=== PATIENT | female | born 1950 | race Caucasian/White ===

== ENCOUNTER 2016-09-25 10:02 | Emergency (ER) | payer MEDICARE ==
[~2016-09-25] VITALS: Ht 154.9 cm; Wt 79.5 kg
[~2016-09-25 10:02] MED LIST: CALC-137 PO; CENTTAB9 PO; ESTR42.5V PV; EXTR500C PO; VITA20002 PO
[2016-09-25 10:04] VITALS: BP 165/74; PULSE 70; RESP 20; TEMP 98.5; O2SAT 96
--- NOTE | 2016-09-25 10:46 | RADRPT ---
EXAM DATE/TIME: 09/25/2016 10:28 [facility] COMPARISON: No previous studies available for comparison. INDICATIONS : Pain from fall. MEDICAL HISTORY : None. SURGICAL HISTORY : Lymph node removal. ENCOUNTER: Initial ACUITY: 2 days PAIN SCORE: 5/10 LOCATION: Right shoulder. FINDINGS: 4 views of the right shoulder demonstrate no fracture or dislocation. Mineralization is normal. There are clips overlying the right axilla. No soft tissue abnormality is seen. Right chest demonstrates n o acute finding. CONCLUSION: No acute right shoulder abnormality is identified. Sarath Fletcher MD on September 25, 2016 at 10:42 Board Certified Radiologist. This report was verified electronically.
--- NOTE | 2016-09-25 10:47 | RADRPT ---
EXAM DATE/TIME: 09/25/2016 10:31 [facility] COMPARISON: No previous studies available for comparison. INDICATIONS : Pain from fall. MEDICAL HISTORY : None. SURGICAL HISTORY : Lymph node removal. ENCOUNTER: Initial ACUITY: 2 days PAIN SCORE: 5/10 LOCATION: Right humerus. FINDINGS: 2 views right humerus demonstrate no fracture or dislocation. Mineralization is within normal limits. No soft tissue abnormality or radiopaque foreign body is identified. Clips overlie the right axilla. CONCLUSION: No acute finding is identified. Sarath Fletcher MD on September 25, 2016 at 10:44 Board Certified Radiologist. This report was verified electronically.
--- NOTE | 2016-09-25 10:48 | PD ---
HPI Chief Complaint: Musculoskeletal Complaint Time Seen by Provider: 10:32 Travel History International Travel<30 days: No Contact w/Intl Traveler<30days: No Traveled to known affect area: No History of Present Illness HPI 66-year-old Spanish female presents the emergency department after slipping and falling yesterday. Patient states her right foot slipped and she fell to the right side landing on her right hip and shoulder. Patient states pain worse in the right upper arm and shoulder. Patient has caused decreased range of motion laterally in the right shoulder. She denies numbness, tingling , or weakness. Pain is localized in the right lateral shoulder. She states her hip is mildly sore but she is able to ambulate without difficulty. She denies neck pain or headache. She did not hit her head or suffer loss of consciousness. Pain is about a 6 out of 10 in the right shoulder, and worse with movement. She has no known drug allergies. PFSH Past Medical History Cancer: Yes (HX RIGHT BREAST CA) Cardiovascular Problems: No Diabetes: No Endocrine: No Genitourinary: No Hepatitis: No Hiatal Hernia: No Immune Disorder: No Musculoskeletal: No Neurologic: No Psychiatric: No Reproductive: No Respiratory: No Thyroid Disease: No Past Surgical History Abdominal Surgery: No Body Medical Devices: PERM DENTAL BRIDGE Cardiac Surgery: No Ear Surgery: No Endocrine Surgery: No Eye Surgery: No Genitourinary Surgery: No Gynecologic Surgery: No Oral Surgery: No Thoracic Surgery: Yes (RIGHT MASTECTOMY, LEFT BX) Social History Alcohol Use: Yes Tobacco Use: No Substance Use: No Allergies-Medications (Allergen,Severity, Reaction): Coded Allergies: No Known Allergies (Unverified , 10/15/15) Reported Meds & Prescriptions Reported Meds & Active Scripts Active Reported Centrum (Multivitamins) Tab 1 Tab PO DAILY Calcium 600 (Calcium Carbonate) Tab 1 Tab PO DAILY 30 Days Vitamin D-3 (Cholecalciferol) 2 000 Tab 2,000 Unit PO DAILY Extra Strength Acetaminop (Acetaminophen) 500 Mg Cap 500 Mg PO Q12HR PRN Estrace (Estradiol) 0.1 Mg/Gm Cre 1 Applic PV Review of Systems Except as stated in HPI: all other systems reviewed are Neg General / Constitutional: No: Fever Eyes: No: Visual changes HENT: No: Headaches Cardiovascular: No: Chest Pain or Discomfort Respiratory: No: Shortness of Breath Gastrointestinal: No: Abdominal Pain Genitourinary: No: Dysuria Musculoskeletal: Positive: Myalgias, Arthralgias, Limited ROM, Pain (see history present illness.) Skin: No Rash Neurologic: No: Weakness Psychiatric: No: Depression Endocrine: No: Polydipsia Hematologic/Lymphatic: No: Easy Bruising Physical Exam Narrative GENERAL: Patient appears in no acute distress, and is ambulating normally. She has mild guarding of the right arm. SKIN: Warm and dry. Normal color. Normal turgor. No obvious ecchymosis, abrasions, or lacerations. HEAD: Atraumatic. Normocephalic. Nontender. EYES: Pupils equal and round. No scleral icterus. No injection or drainage. ENT: No nasal bleeding or discharge. Mucous membranes pink and moist. Pharynx is clear. Airway is patent. NECK: Trachea midline. No bony tenderness or step-off. Range of motion is full and supple. CARDIOVASCULAR: Regular rate and rhythm. RESPIRATORY: No accessory muscle use. Clear to auscultation. Breath sounds equal bilaterally. MUSCULOSKELETAL: Extremities without clubbing, cyanosis, or edema. No obvious deformities. Patient is tenderness with palpation of the right upper humerus and shoulder. Patient is able to place her right hand behind her back, as well as onto her left shoulder, but she has increased pain with lateral rotation of the right forearm, and with lateral extension of the humerus. Hip has minimal discomfort with palpation. Lower extremity range of motion is normal. NEUROLOGICAL: Awake and alert. No obvious cranial nerve deficits. Motor grossly within normal limits. Five out of 5 muscle strength in the arms and legs. Normal speech. PSYCHIATRIC: Appropriate mood and affect; insight and judgment normal. Data Data Last Documented VS Vital Signs Date Time Temp Pulse Resp B/P Pulse Ox O2 Delivery O2 Flow Rate FiO2 09/25/16 10:04 98.5 70 20 165/74 96 Room Air Orders Humerus (Min 2vws) (09/25/16 10:17) Shoulder, Complete (>2vws) (09/25/16 10:17) Ice/Cold Pack (09/25/16 10:17) MDM Medical Decision Making Medical Screen Exam Complete: Yes Emergency Medical Condition: Yes Differential Diagnosis Slip and fall. Right shoulder contusion. Possible humeral fracture. Right hip contusion. Narrative Course Patient is medically stable at time of exam. X-ray of the right shoulder and humerus are ordered. X-rays are negative for fracture per radiologist. Patient will treat with ice, ibuprofen, and acetaminophen as discussed. She'll follow-up with her primary care physician or return to the emergency department as needed. Diagnosis Primary Impression: Fall from slip, trip, or stumble Qualified Code: W01.0XXA - Fall from slip, trip, or stumble, initial encounter Additional Impression: Contusion of right shoulder, initial encounter Referrals: Primary Care Physician Patient Instructions: Contusion in Adults (ED), General Instructions Additional Instructions: X-rays are negative for fracture per radiologist. Patient will treat with ice, ibuprofen, and acetaminophen as discussed. She'll follow-up with her primary care physician or return to the emergency department as needed. Med/Other Pt SpecificInfo: Prescription(s) given Scripts Acetaminophen (Non-Aspirin Pain Relief ES)500 Mg [id number] Mg PO Q6HR PRN (PAIN) # 60 TAB Prov:Payton Thompson MD 09/25/16 Ibuprofen 600 Mg [id number] Mg PO Q6H PRN (Pain/Inflammation) #40 TAB Prov:Payton Thompson MD 09/25/16 Disposition: 01 DISCHARGE HOME Condition: Stable Doc Mathis Sep 25, 2016 10:48
[2016-09-25] MEDS ORDERED: NON-500T13 PO (10:52)
[2016-09-25] MEDS ORDERED: IBUP-232 PO (10:52)
== END 2016-09-25 11:14 | disposition home or self-care (01) ==
LOC: NEPK 10:02
DX: S40.011A Contusion of right shoulder, initial encounter (principal); W01.0XXA Fall on same level from slipping, tripping and stumbling without subsequent striking against object, initial encounter
CPT/HCPCS: 73030; 73060; 99283